=== PATIENT | female | born 1980 | race Caucasian/White ===

== ENCOUNTER 2019-03-24 06:10 | Emergency (ER) | payer BC, OTHER ==
[2019-03-24] MEDS ORDERED: ASPIRIN 81 MG TABLET, CHEWABLE PO ONE (07:27)
[2019-03-24 08:03] LABS: ABSOLUTE BASOPHILS # (AUTO) 0.1 10^3/uL (0.0-0.2); ABSOLUTE EOSINOPHILS # (AUTO) 0.2 10^3/uL (0.0-0.6); ABSOLUTE LYMPHOCYTES (AUTO) 1.7 10^3/uL (0.5-4.7); ABSOLUTE MONOCYTES (AUTO) 0.4 10^3/uL (0.1-1.4); ABSOLUTE NEUT (AUTO) 4.9 10^3/uL (1.7-8.2); BASOPHILS % (AUTO) 0.9 % (0-2); EOSINOPHILS % (AUTO) 2.2 % (0-6); HEMATOCRIT 41.9 % (36.0-47.0); HEMOGLOBIN 14.5 g/dL (12.0-15.5); LYMPHOCYTES % (AUTO) 23.3 % (13-45); MEAN CORPUSCULAR HEMOGLOBIN 31.6 pg (27.0-33.4); MEAN CORPUSCULAR HGB CONC 34.5 g/dL (32.0-36.0); MEAN CORPUSCULAR VOLUME 92 fl (80-97); MONOCYTES % (AUTO) 5.7 % (3-13); PLATELET COUNT 239 10^3/uL (150-450); RED BLOOD COUNT 4.58 10^6/uL (3.72-5.28); RED CELL DISTRIBUTION WIDTH 13.4 % (11.5-14.0); SEGMENTED NEUTROPHILS % (AUTO) 67.9 % (42-78); TOTAL CELLS COUNTED % (AUTO) 100 %; WHITE BLOOD COUNT 7.2 10^3/uL (4.0-10.5)
[2019-03-24 08:15] LABS: ALANINE AMINOTRANSFERASE 22 U/L (9-52); ALBUMIN 4.1 g/dL (3.5-5.0); ALKALINE PHOSPHATASE 89 U/L (38-126); ANION GAP 11 (5-19); ASPARTATE AMINO TRANSFERASE 19 U/L (14-36); BILIRUBIN,DIRECT 0.2 mg/dL (0.0-0.4); BILIRUBIN,TOTAL 0.4 mg/dL (0.2-1.3); BLOOD UREA NITROGEN 10 mg/dL (7-20); CALCIUM 9.6 mg/dL (8.4-10.2); CARBON DIOXIDE 24 mmol/L (22-30); CHLORIDE 108 mmol/L (98-107); CREATINE KINASE 89 U/L (30-135); GLUCOSE 99 mg/dL (75-110); POTASSIUM 4.3 mmol/L (3.6-5.0); SODIUM 142.8 mmol/L (137-145); TOTAL PROTEIN 7.3 g/dL (6.3-8.2)
--- NOTE | 2019-03-24 08:21 | RADIOLOGY REPORT (SQ) ---
EXAM DESCRIPTION: CHEST SINGLE VIEW COMPLETED DATE/TIME: 03/24/2019 8:10 am REASON FOR STUDY: bed 19 cp COMPARISON: None. EXAM PARAMETERS: NUMBER OF VIEWS: One view. TECHNIQUE: Single frontal radiographic view of the chest acquired. RADIATION DOSE: NA LIMITATIONS: None. FINDINGS: LUNGS AND PLEURA: No opacities, masses or pneumothorax. No pleural effusion. MEDIASTINUM AND HILAR STRUCTURES: No masses. Contour normal. HEART AND VASCULAR STRUCTURES: Heart normal in size. Normal vasculature. BONES: No acute findings. HARDWARE: None in the chest. OTHER: No other significant finding. IMPRESSION: NO ACUTE RADIOGRAPHIC FINDING IN THE CHEST. TECHNICAL DOCUMENTATION: JOB ID: [id number] [employer]- All Rights Reserved Reading location - IP/workstation name: [email or web address]
[2019-03-24 08:26] LABS: CREATINE KINASE MB 0.35 ng/mL (<4.55); TROPONIN I < 0.012 ng/mL
--- NOTE | 2019-03-24 08:44 | ER Document Report ---
ED Cardiac - General Chief Complaint: Chest Pain Stated Complaint: CHEST PAIN Time Seen by Provider: 03/24/19 08:04 Primary Care Provider: TYREE LOPEZ MD [ACTIVE STAFF] - Follow up as needed EDWARD KEMP MD [Primary Care Provider] - Follow up as needed Notes: 38-year-old female with history of anxiety presents to the emergency department for chief complaint of chest pain that started at 5 AM this morning. She says the pain is stabbing and constant. She said it is worse when she takes deep breaths. She said it has been going off and on for months. It is in her left chest and radiates around her to her axilla. She has mild nausea. She denies cold sweats, dyspnea, diaphoresis. She is not a smoker. She had a full cardiac work-up in 2017 in [place] that was negative. Of note, she did have a panic attack 2 days ago and her father had several heart attacks, first 1 at age 38.. She denies any fevers or chills, vomiting or diarrhea, abdominal pain, urinary symptoms. No other complaints. TRAVEL OUTSIDE OF THE [place] IN LAST 30 DAYS: No - Related Data Allergies/Adverse Reactions: No Known Allergies Allergy (Unverified 03/24/19 06:14) Past Medical History - Social History Smoking Status: Never Smoker Family History: None Patient has suicidal ideation: No Patient has homicidal ideation: No Renal/ Medical History: Denies: Hx Peritoneal Dialysis Past Surgical History: Reports: Hx Cholecystectomy Review of Systems - Review of Systems Constitutional: See HPI EENT: No symptoms reported Cardiovascular: See HPI Respiratory: See HPI Gastrointestinal: See HPI Genitourinary: See HPI Female Genitourinary: No symptoms reported Musculoskeletal: See HPI Skin: No symptoms reported Hematologic/Lymphatic: No symptoms reported Neurological/Psychological: No symptoms reported Physical Exam - Vital signs Vitals: Temp Pulse Resp BP Pulse Ox 97.8 F 71 16 105/68 97 03/24/19 06:54 03/24/19 06:54 03/24/19 06:54 03/24/19 06:54 03/24/19 06:54 - Notes Notes: PHYSICAL EXAMINATION: Reviewed vital signs and charting by RN GENERAL: Alert, interacts well. No acute distress. HEAD: Normocephalic, atraumatic. EYES: Pupils equal and round. Extraocular movements intact. ENT: Oral mucosa moist, tongue midline. NECK: Full range of motion. Supple. Trachea midline. LUNGS: Clear to auscultation bilaterally, no wheezes, rales, or rhonchi. No respiratory distress. HEART: Regular rate and rhythm. No murmur ABDOMEN: soft, non-tender. Non-distended. Bowel sounds present. no McBurney's point tenderness, no Godfrey sign. EXTREMITIES: Moves all 4 extremities spontaneously. No edema, No cyanosis. Normal distal neurovascular exam BACK: L CVAT NEUROLOGIC: Oriented and appropriate. Normal speech. PSYCH: Normal affect, normal mood. SKIN: Warm, dry, normal turgor. No rashes or lesions noted. Course - Re-evaluation Re-evalutation: 03/24/19 09:40 Patient in mild distress. Her pain is reproducible with deep inspiration. Does have significant family history. Heart score 1 for risk risk factors. PERC negative. Chest x-ray did not show any widened mediastinum. EKG showed normal sinus rhythm. Initial troponin negative. 03/24/19 12:38 Patient second troponin negative. Because the pain is reproducible and I have low suspicion for a cardiac etiology at this time due to patient's heart score and overall clinical picture I do not believe this is due to cardiac etiology like ACS, aortic dissection, aortic aneurysm, PE, or any other emergent conditions. Patient is stable for discharge with close follow-up for cardiac stress testing as an outpatient. Vital signs are normal. 03/24/19 12:39 03/24/19 12:39 - Vital Signs Vital signs: Temp Pulse Resp BP Pulse Ox 97.8 F 89 21 H 116/81 95 03/24/19 06:54 03/24/19 07:33 03/24/19 11:01 03/24/19 11:01 03/24/19 11:01 - Laboratory Result Diagrams: 03/24/19 07:42 03/24/19 07:42 Laboratory results interpreted by me: 03/24/19 07:42 Chloride 108 H Discharge - Discharge Clinical Impression: Chest pain Qualifiers: Chest pain type: unspecified Qualified Code(s): R07.9 - Chest pain, unspecified Condition: Good Disposition: HOME, SELF-CARE Additional Instructions: You were seen today for chest pain. The exact cause of your pain is unclear. However, based on your cardiac enzyme testing, chest x-ray, and EKG it does not appear that it is from an immediately life-threatening cause at this time. Although your testing here is normal is critical that you follow-up with your primary care physician for continued evaluation of this chest pain and possible stress testing. I recommended you see your physician within the next 24-48 hour s to be evaluated for consideration of a stress test. I have given you referral information for associate merchandise planner, Dr. Lopez. Please return to emergency department immediately if you have worsening of your chest pain, shortness of breath, vomiting, become unable to exert yourself due to pain or difficulty breathing, you pass out, or have any pain that radiates into your arms, jaw, or back. Please also return if you have any additional symptoms that are concerning to you. Referrals: EDWARD KEMP MD [Primary Care Provider] - Follow up as needed TYREE LOPEZ MD [ACTIVE STAFF] - Follow up as needed
[2019-03-24] MEDS ORDERED: FENTANYL CITRATE INJ/PF 100 MCG/2 ML AMPUL IV ONE ×3 (10:00→12:44)
[2019-03-24] MEDS ORDERED: ONDANSETRON HCL INJ/PF 4 MG/2 ML SDV IV ONE (11:57)
[2019-03-24] MEDS ORDERED: ONDANSETRON ODT 4 MG TAB (6 TAB/ER DISP) PO PRN (11:57)
[2019-03-24] MEDS ORDERED: HYDROCODONE/ACETAMINOPHEN 5-325 MG (6 TAB/ER DISP) PO PRN (11:58)
[2019-03-24 12:43] VITALS: BP 116/77
--- NOTE | 2019-03-24 22:53 | EKG REPORT ---
SEVERITY:- NORMAL ECG - SINUS RHYTHM : Confirmed by: Giuseppe Tripathi 24-Mar-2019 22:51:58
== END 2019-03-24 12:56 | disposition home or self-care (01) ==
LOC: ER 06:10
DX: R07.9 Chest pain, unspecified (principal); F41.9 Anxiety disorder, unspecified
CPT/HCPCS: 93005; 96376; 99284; 96374; 96375; 36415; 82553; 82550; 85025; 80053; 84484; 71045; 93010; J3010; J2405

== ENCOUNTER 2020-04-05 12:13 | Emergency (ER) | payer OTHER ==
--- NOTE | 2020-04-05 12:50 | ER Document Report ---
ED Medical Screen (RME) - General Chief Complaint: Chest Pain Stated Complaint: CHEST PAIN Time Seen by Provider: 04/05/20 12:49 Primary Care Provider: EDWARD KEMP MD [Primary Care Provider] - Follow up as needed Mode of Arrival: Ambulatory Information source: Patient Notes: 39-year-old female patient presents the emergency department chief complaint of chest pain. Patient reports pain started yesterday to the left side of her chest near the mid axillary line. She states she does have a history of costochondritis. She states the pain has been intermittent but severe. She states the pain feels like a sharp stabbing pain and she is having a hard time catching her breath. She reports that she has a strong family cardiac history. Lung sounds clear and equal bilaterally. Heart sounds S1-S2 present, normal rate, normal rhythm. I have greeted and performed a rapid initial assessment of this patient. A comprehensive ED assessment and evaluation of the patient, analysis of test results and completion of the medical decision making process will be conducted by additional ED providers. I have specifically instructed the patient or family members with the patient to immediately return to any nursing staff should anything change in the patient's condition or with their chief complaint. TRAVEL OUTSIDE OF THE [place] IN LAST 30 DAYS: No - Related Data Allergies/Adverse Reactions: No Known Allergies Allergy (Verified 04/05/20 12:47) Past Medical History - Social History Chew tobacco use (# tins/day): No Frequency of alcohol use: Occasional Drug Abuse: None Renal/ Medical History: Denies: Hx Peritoneal Dialysis Past Surgical History: Reports: Hx Cholecystectomy Physical Exam - Vital signs Vitals: Temp Pulse Resp BP Pulse Ox 97.8 F 100 16 125/82 98 04/05/20 12:27 04/05/20 12:27 04/05/20 12:27 04/05/20 12:27 04/05/20 12:27 Course - Vital Signs Vital signs: Temp Pulse Resp BP Pulse Ox 97.8 F 100 16 125/82 98 04/05/20 12:45 04/05/20 12:27 04/05/20 12:27 04/05/20 12:27 04/05/20 12:27 Doctor's Discharge - Discharge Referrals: EDWARD KEMP MD [Primary Care Provider] - Follow up as needed
[2020-04-05 13:10] LABS: ABSOLUTE BASOPHILS # (AUTO) 0.1 10^3/uL (0.0-0.2); ABSOLUTE EOSINOPHILS # (AUTO) 0.2 10^3/uL (0.0-0.6); ABSOLUTE LYMPHOCYTES (AUTO) 1.7 10^3/uL (0.5-4.7); ABSOLUTE MONOCYTES (AUTO) 0.4 10^3/uL (0.1-1.4); BASOPHILS % (AUTO) 0.7 % (0-2); EOSINOPHILS % (AUTO) 2.1 % (0-6); HEMATOCRIT 41.3 % (36.0-47.0); HEMOGLOBIN 14.4 g/dL (12.0-15.5); LYMPHOCYTES % (AUTO) 20.4 % (13-45); MEAN CORPUSCULAR HEMOGLOBIN 31.1 pg (27.0-33.4); MEAN CORPUSCULAR HGB CONC 34.8 g/dL (32.0-36.0); MEAN CORPUSCULAR VOLUME 89 fl (80-97); MONOCYTES % (AUTO) 5.3 % (3-13); PLATELET COUNT 236 10^3/uL (150-450); RED BLOOD COUNT 4.62 10^6/uL (3.72-5.28); RED CELL DISTRIBUTION WIDTH 13.7 % (11.5-14.0); SEGMENTED NEUTROPHILS % (AUTO) 71.5 % (42-78); TOTAL CELLS COUNTED % (AUTO) 100 %; WHITE BLOOD COUNT 8.4 10^3/uL (4.0-10.5)
--- NOTE | 2020-04-05 13:25 | ER Document Report ---
ED General - General Chief Complaint: Chest Pain Stated Complaint: CHEST PAIN Time Seen by Provider: 04/05/20 12:49 Primary Care Provider: EDWARD KEMP MD [NO LOCAL MD] - Follow up as needed Mode of Arrival: Ambulatory TRAVEL OUTSIDE OF THE [place] IN LAST 30 DAYS: No - HPI Notes: Chief complaint: Chest pain HPI: 39-year-old female presenting for evaluation of intermittent sharp discomfort left anterolateral chest below axilla present now for 2 days. She denies trauma or unaccustomed activity. She is felt mildly dyspneic. She denies cough or hemoptysis. No fever or chills. No personal history of thromboembolic disease but her father was treated for PE in the past. Pain is mildly pleuritic. Also aggravated by movement of the left upper extremity or lying on left side. No skin rashes. Patient is recently been started on progesterone for management of postmenopausal symptoms. No recent lower extremity edema or pain. No recent surgery. No recent prolonged travel or immobilization. Patient had similar discomfort in 2017 and underwent evaluation for coronary ischemia and PE in [facility] and was told that her work-up was negative at that time and that her pain was likely of musculoskeletal origin. Her evaluation included a normal treadmill test. Patient had another episode of similar discomfort which was evaluated here approximately 1 year ago. She was told at that time that she had probable costochondritis. Patient is not diabetic. She has no history of hypertension or hyperlipidemia. Family history is positive for CAD. HEART Score: HISTORY 0 ECG 0 AGE 0 RISK FACTORS 1 TROPONIN 0 TOTAL: 1 If HEART score is = or <3 AND both tronponin measurments are normal, the 30 day risk of a major adverse cardiac event (all-cause mortality, myocardia infarction or need for coronary revscularization) is < 1% (Sensitivity 100%, NPV 100%). - Related Data Allergies/Adverse Reactions: No Known Allergies Allergy (Verified 04/05/20 12:47) Past Medical History - General Information source: Patient, [facility] Records - Social History Smoking Status: Never Smoker Chew tobacco use (# tins/day): No Frequency of alcohol use: Occasional Drug Abuse: None Family History: None Patient has homicidal ideation: No - Past Medical History Cardiac Medical History: Reports: None Pulmonary Medical History: Reports: None Neurological Medical History: Reports: None Endocrine Medical History: Reports: None Renal/ Medical History: Denies: Hx Peritoneal Dialysis Malignancy Medical History: Reports: None GI Medical History: Reports: None Psychiatric Medical History: Reports: Hx Anxiety, Hx Depression Past Surgical History: Reports: Hx Cholecystectomy Review of Systems - Review of Systems Notes: Constitutional: Negative for fever. HENT: Negative for sore throat. Eyes: Negative for visual changes. Cardiovascular: As per HPI Respiratory: As per HPI Gastrointestinal: Negative for abdominal pain, vomiting or diarrhea. Genitourinary: Negative for dysuria. Musculoskeletal: Negative for back pain. Skin: Negative for rash. Neurological: Negative for headaches, weakness or numbness. 10 point ROS negative except as marked above and in HPI. Physical Exam - Vital signs Vitals: Temp Pulse Resp BP Pulse Ox 97.8 F 100 16 125/82 98 04/05/20 12:27 04/05/20 12:27 04/05/20 12:27 04/05/20 12:27 04/05/20 12:27 - Notes Notes: GENERAL: Well-developed well-nourished appearing in no acute distress. SKIN: Good turgor no rashes. HEAD: Normocephalic atraumatic. EYES: PERRLA. EOMI. Conjunctivae and sclerae clear. EARS: CANALS AND TMS CLEAR. NOSE: CLEAR. MOUTH: Moist mucosa. Good dentition. No stridor or edema. No drooling. NECK: Supple. No masses or thyromegaly. No adenopathy. Carotids 2+ without bruits. No JVD. BACK: Symmetrical without tenderness. CHEST: Patient is taking shallow respirations and possible splinting some of the left side. Respirations unlabored. Breath sounds clear and symmetrical. HEART: Tenderness over left anterolateral rib cage which EXACTLY reproduces her pain. Regular rhythm. No murmur gallop or rub. ABDOMEN: Soft nontender without masses, organomegaly or rebound. Bowel sounds normally active. No bruits. GENITALIA: Deferred. EXTREMITIES: No edema. No calf tenderness. Cap refill less than 1.5 seconds. Dorsalis pedis and posterior tibial pulses 3+ and symmetrical. NEUROLOGICAL: GCS 15. Alert and oriented x3. Normal gait. Fluent speech. Cranial nerves II through XII intact. Sensorimotor and cerebellar normal. Normal tone. PSYCHIATRIC: Anxious affect. Course - Re-evaluation Re-evalutation: 04/05/20 15:11 This lady has reproducible pain on palpation over her chest wall. She has been worked up in the past with negative cardiac evaluation. She has minimal risk factors. She did raise some concern for pulmonary embolus so I got a CTA of the chest and this was negative for PE. Her troponin is normal here. Her EKG showed no acute changes. I think she is stable for outpatient management. I also note she has a fairly significant thoracolumbar scoliosis which may predispose her to muscular spasm. I will send her out with NSAID and muscle relaxer and have her follow-up with PMD this week. - Vital Signs Vital signs: Temp Pulse Resp BP Pulse Ox 97.8 F 100 16 113/82 98 04/05/20 12:45 04/05/20 12:27 04/05/20 15:00 04/05/20 15:00 04/05/20 15:00 - Laboratory Result Diagrams: 04/05/20 12:55 04/05/20 12:55 - EKG Interpretation by Me Additional EKG results interpreted by me: 04/05/20 13:38 Twelve-lead EKG from 1222 hrs. reviewed contemporaneously by me showing normal sinus rhythm with a rate of 88 normal intervals and axis of +30 degrees. Nonspecific anterolateral T wave flattening. Discharge - Discharge Clinical Impression: Chest wall pain, Thoracogenic scoliosis, thoracolumbar region Condition: Stable Disposition: HOME, SELF-CARE Instructions: Chest Wall Pain ([facility]) Additional Instructions: See your primary care doctor this week for further evaluation. Take prescribed medications. Return here as needed for new or worsening symptoms: Pain that is worsening or unimproved Uncontrolled vomiting High fever or shaking chills Overall worsening Prescriptions: Cyclobenzaprine HCl [Flexeril 10 mg Tablet] 10 mg PO QHS PRN 15 Days #15 tablet PRN Reason: Indomethacin 25 mg PO TID 10 Days #30 capsule Referrals: EDWARD KEMP MD [NO LOCAL MD] - Follow up as needed
[2020-04-05 13:26] LABS: ALBUMIN 3.9 g/dL (3.5-5.0); ALKALINE PHOSPHATASE 102 U/L (38-126); ANION GAP 6 (5-19); ASPARTATE AMINO TRANSFERASE 25 U/L (14-36); BILIRUBIN,TOTAL 0.5 mg/dL (0.2-1.3); BLOOD UREA NITROGEN 11 mg/dL (7-20); CALCIUM 9.3 mg/dL (8.4-10.2); CARBON DIOXIDE 26 mmol/L (22-30); CHLORIDE 107 mmol/L (98-107); GLUCOSE 106 mg/dL (75-110); POTASSIUM 4.1 mmol/L (3.6-5.0); TOTAL PROTEIN 7.1 g/dL (6.3-8.2)
--- NOTE | 2020-04-05 13:31 | RADIOLOGY REPORT (SQ) ---
EXAM DESCRIPTION: CHEST SINGLE VIEW IMAGES COMPLETED DATE/TIME: 04/05/2020 12:07 pm REASON FOR STUDY: chest pain COMPARISON: 04/08/2019 EXAM PARAMETERS: NUMBER OF VIEWS: One view. TECHNIQUE: Single frontal radiographic view of the chest acquired. RADIATION DOSE: NA LIMITATIONS: None. FINDINGS: LUNGS AND PLEURA: No opacities, masses or pneumothorax. No pleural effusion. MEDIASTINUM AND HILAR STRUCTURES: No masses. Contour normal. HEART AND VASCULAR STRUCTURES: Heart normal in size. Normal vasculature. BONES: Mild apex right scoliotic curvature of the thoracic spine, stable. HARDWARE: None in the chest. OTHER: No other significant finding. IMPRESSION: NO ACUTE RADIOGRAPHIC FINDING IN THE CHEST. TECHNICAL DOCUMENTATION: JOB ID: [id number] 2010 [employer]- All Rights Reserved Reading location - IP/workstation name: [email or web address]
[2020-04-05] MEDS ORDERED: KETOROLAC TROMETHAMINE INJ/PF 30 MG/1 ML SDV IV ONE (13:45)
--- NOTE | 2020-04-05 14:36 | RADIOLOGY REPORT (SQ) ---
EXAM DESCRIPTION: CTA CHEST IMAGES COMPLETED DATE/TIME: 04/05/2020 1:05 pm REASON FOR STUDY: Pleuritic chest pain, dyspnea COMPARISON: None. TECHNIQUE: CT scan of the chest performed using helical scanning technique with dynamic intravenous contrast injection. Images reviewed with lung, soft tissue and bone windows. Reconstructed coronal and sagittal MPR images reviewed. Additional 3 dimensional post-processing performed to develop Maximal Intensity Projection images (FL P). All images stored on PACS. All CT scanners at this facility use dose modulation, iterative reconstruction, and/or weight based d osing when appropriate to reduce radiation dose to as low as reasonably achievable (ALARA). [facility]: Dose Right [facility]: CareDose [facility]: Dose Right [facility]: Teradose 4D [facility]: [employer] CONTRAST TYPE AND DOSE: 100 mL Omnipaque 350- low osmolar. Contrast bolus optimized for the pulmonary arteries. Not diagnostic for the aorta. RENAL FUNCTION: GFR > 60. RADIATION DOSE: CT Rad equipment meets quality standard of care and radiation dose reduction techniq ues were employed. CTDIvol: 13.2 - 17.8 mGy. DLP: 750 mGy-cm. . LIMITATIONS: None. FINDINGS: LUNGS AND PLEURA: No masses, infiltrates, or pneumothorax. No pleural effusions or pleura l calcifications. AORTA AND GREAT VESSELS: No aneurysm. Contrast bolus not optimized for the aorta. HEART: No pericardial effusion. No significant coronary artery calcifications. PULMONARY ARTERIES: No emboli visualized in the main pulmonary arteries or the segmental branches. HILAR AND MEDIASTINAL STRUCTURES: No identified masses or abnormal nodes. HARDWARE: None in the chest. UPPER ABDOMEN: No significant findings. Limited exam. THYROID AND OTHER SOFT TISSUES: No masses. No adenopathy. BONES: No acute or significant finding. 3D MIPS: Confirm above findings. OTHER: No other significant finding. IMPRESSION: NORMAL CTA OF THE CHEST. NO PULMONARY EMBOLI. COMMENT: Quality ID # [id number]: Final reports with documentation of one or more dose reduction techniques (e.g., Automated exposure control, adjustment of the mA and/or kV according to patient size, use of iterative reconstruction technique) TECHNICAL DOCUMENTATION: JOB ID: [id number] 2010 [employer]- All Rights Reserved Reading location - IP/workstation name: [email or web address]
[2020-04-05 16:01] VITALS: BP 113/80
--- NOTE | 2020-04-05 22:17 | EKG REPORT ---
SEVERITY:- BORDERLINE ECG - SINUS RHYTHM BORDERLINE T ABNORMALITIES, ANTERIOR LEADS : Confirmed by: Giuseppe Tripathi 05-Apr-2020 22:17:03
== END 2020-04-05 15:51 | disposition home or self-care (01) ==
LOC: ER 12:13
DX: M41.35 Thoracogenic scoliosis, thoracolumbar region (principal); R07.89 Other chest pain; R06.00 Dyspnea, unspecified; R07.81 Pleurodynia
CPT/HCPCS: 93005; 99284; 96374; 36415; 85025; 80053; 84484; 71045; 71275; 93010; J1885

== ENCOUNTER 2020-10-26 21:18 | Emergency (ER) | payer OTHER ==
[2020-10-26] MEDS ORDERED: KETOROLAC TROMETHAMINE INJ/PF 30 MG/1 ML SDV IV ONE (21:33)
[2020-10-26] MEDS ORDERED: NORMAL SALINE 1000 ML 1,000 ML IV ONE (21:33)
[2020-10-26] MEDS ORDERED: ONDANSETRON HCL INJ/PF 4 MG/2 ML SDV IV ONE ×2 (21:34→23:54)
--- NOTE | 2020-10-26 21:35 | ER Document Report ---
ED Medical Screen (RME) - General Chief Complaint: Flank Pain Stated Complaint: SEVERE FLANK PAIN, BLOOD IN URINE,NAUSEA Time Seen by Provider: 10/26/20 21:30 Notes: HPI: 40-year-old female with sudden onset of left flank pain that began approx imately an hour ago with 2 episodes of nausea vomiting. Pain started in the back is now radiated around to the front. Has had some frequency of urination tonight with this. No fever prior. No kidney stone history. Position and movement and walking do not change the character of the discomfort PHYSICAL EXAMINATION: Appears moderately uncomfortable. Minimal tenderness of the left flank on palpation no CVA tenderness on the left I have greeted and performed a rapid initial assessment of this patient. A comprehensive ED assessment and evaluation of the patient, analysis of test results and completion of medical decision making process will be conducted by an additional ED providers. TRAVEL OUTSIDE OF THE [place] IN LAST 30 DAYS: No - Related Data Allergies/Adverse Reactions: No Known Allergies Allergy (Verified 04/05/20 12:47) Past Medical History Renal/ Medical History: Denies: Hx Peritoneal Dialysis Psychiatric Medical History: Reports: Hx Anxiety, Hx Depression Past Surgical History: Reports: Hx Cholecystectomy
[2020-10-26] MEDS ORDERED: ONDANSETRON 4 MG TAB.RAPDIS PO ONE (21:40)
[2020-10-26] MEDS ORDERED: KETOROLAC TROMETHAMINE 60 MG/2 ML SDV IM ONE (21:40)
[2020-10-26 22:22] LABS: ABSOLUTE BASOPHILS # (AUTO) 0.1 10^3/uL (0.0-0.2); ABSOLUTE EOSINOPHILS # (AUTO) 0.2 10^3/uL (0.0-0.6); ABSOLUTE LYMPHOCYTES (AUTO) 2.3 10^3/uL (0.5-4.7); ABSOLUTE MONOCYTES (AUTO) 0.6 10^3/uL (0.1-1.4); BASOPHILS % (AUTO) 0.7 % (0-2); EOSINOPHILS % (AUTO) 1.7 % (0-6); HEMOGLOBIN 14.7 g/dL (12.0-15.5); LYMPHOCYTES % (AUTO) 22.7 % (13-45); MEAN CORPUSCULAR HEMOGLOBIN 31.3 pg (27.0-33.4); MEAN CORPUSCULAR HGB CONC 34.9 g/dL (32.0-36.0); MEAN CORPUSCULAR VOLUME 90 fl (80-97); MONOCYTES % (AUTO) 6.4 % (3-13); PLATELET COUNT 286 10^3/uL (150-450); RED BLOOD COUNT 4.69 10^6/uL (3.72-5.28); RED CELL DISTRIBUTION WIDTH 13.7 % (11.5-14.0); SEGMENTED NEUTROPHILS % (AUTO) 68.5 % (42-78); TOTAL CELLS COUNTED % (AUTO) 100 %; WHITE BLOOD COUNT 10.2 10^3/uL (4.0-10.5)
[2020-10-26 22:37] LABS: APPEARANCE,URINE TURBID; BILIRUBIN,URINE NEGATIVE (NEGATIVE); COLOR,URINE YELLOW; GLUCOSE, URINE NEGATIVE (NEGATIVE); KETONES,URINE NEGATIVE (NEGATIVE); LEUKOCYTE ESTERASE,URINE MODERATE (NEGATIVE); NITRITE,URINE NEGATIVE (NEGATIVE); PROTEIN,URINE 100 mg/dL (NEGATIVE); URINE SPECIFIC GRAVITY 1.027; UROBILINOGEN,URINE NEGATIVE mg/dL (<2.0)
[2020-10-26 22:41] LABS: ALBUMIN 4.5 g/dL (3.5-5.0); ALKALINE PHOSPHATASE 105 U/L (38-126); ANION GAP 10 (5-19); ASPARTATE AMINO TRANSFERASE 25 U/L (14-36); BILIRUBIN,DIRECT 0.1 mg/dL (0.0-0.4); BILIRUBIN,TOTAL 0.4 mg/dL (0.2-1.3); BLOOD UREA NITROGEN 9 mg/dL (7-20); CALCIUM 10.2 mg/dL (8.4-10.2); CARBON DIOXIDE 21 mmol/L (22-30); CHLORIDE 106 mmol/L (98-107); GLUCOSE 121 mg/dL (75-110); POTASSIUM 3.9 mmol/L (3.6-5.0); TOTAL PROTEIN 7.8 g/dL (6.3-8.2)
--- NOTE | 2020-10-26 23:42 | RADIOLOGY REPORT (SQ) ---
CLINICAL HISTORY: left flank pain COMPARISON: None. TECHNIQUE: CT ABDOMEN PELVIS WITHOUT IV CONTRAST on 10/26/2020 9:34 PM VISUAL C DEVELOPER This exam was performed according to our departmental dose-optimization program, which includes automated exposure control, adjustment of the mA and/or kV according to patient size and/or use of iterative reconstruction technique. FINDINGS: Lower lungs are clear. Abdomen: There are several small cysts in the liver. There is no biliary dilatation. Cholecystectomy was performed. The pancreas and spleen are normal in appearance. Adrenal glands and right kidney are unremarkable. There is mild left hydronephrosis secondary to a punctate left UVJ calculus. Abdominal aorta is normal in course and caliber without aneurysm. There is no free air. There is no retroperitoneal adenopathy. Pelvis: There is no bowel obstruction. Urinary bladder is unremarkable. There is no free fluid. Uterus is normal in size. Appendix is normal. IUD is present. Skeleton: There are no acute osseous findings. No suspicious bony lesions. IMPRESSION: Mildly obstructing punctate left UVJ calculus.
[2020-10-26] MEDS ORDERED: HYDROMORPHONE HCL INJ/PF 2 MG/ML AMPULE IV STA (23:52)
[2020-10-26] MEDS ORDERED: NORMAL SALINE 500 ML IV ONE (23:54)
--- NOTE | 2020-10-27 00:02 | ER Document Report ---
ED General - General Chief Complaint: Possible Kidney Stone Stated Complaint: SEVERE FLANK PAIN, BLOOD IN URINE,NAUSEA Time Seen by Provider: 10/26/20 21:30 Primary Care Provider: ANGELICA BARRERA MD [NO LOCAL MD] - Follow up as needed TRAVEL OUTSIDE OF THE [place] IN LAST 30 DAYS: No - HPI Notes: Chief Complaint: Left flank pain Historian: History obtained from patient HPI: This is a 40-year-old female presents to the ER with acute onset of left flank pain about 1 hour prior to arrival. Patient has associated nausea vomiting and gross hematuria. Left flank pain is severe and throbbing and radiates to the left lower abdomen. She denies history of kidney stones. Denies fever, chills, chest pain, shortness of breath, bowel changes, vaginal discharge. No treatments tried prior to arrival. ROS: Constitutional: no fevers. HEENT: no [place], sore throat, or vision changes. CV: no chest pain or palpitations. Resp: no cough or SOB. GI: Left flank pain, left lower abdominal pain. : Hematuria. MSK: no back pain, no joint swelling/redness. Skin: no rashes or itching. Neuro: no seizures, weakness, numbness, or confusion. Hematological: no ecchymosis or easy bleeding. Endocrine: no polyuria/polydipsia, no heat/cold intolerance. Psych: no SI/HI, AH/VH or memory loss. PMHx: Reviewed and agree as charted by RN. PSHx: Reviewed and agree as charted by RN. SOCHx: Reviewed and agree as charted by RN. FHX: No significant familial comorbid conditions directly related to patient complaint Current Medications: Reviewed and agree with the patient medications as charted by the RN. Allergies: Reviewed and agree with the listed allergies as charted by the RN Physical Exam: Vitals: Reviewed in chart as documented by RN. General: Alert and mild distress due to pain. Head: Normocephalic; atraumatic Eyes: PERRLA, Conjunctivae clear sclerae non-icteric bilat ENT: no soft palate swelling or uvular deviation Neck: trachea midline, no unilateral swelling/tenderness/lymphadenopathy CV: RRR, no M/R/G; symmetric distal pulses Resp: respirations even and unlabored, CTA bilat. GI: Mild left CVA tenderness. Mild left lower abdominal tenderness. Abdomen is soft, nondistended. No rebound or peritoneal signs. No guarding. Bowel sounds normal. No pulsatile mass. MSK: FROM of all extremities. No midline CTL spine tenderness/deformity Skin: warm, moist, good turgor. no rash/lesions Neuro: Alert and oriented X 4. following CN 2-12 intact. no unilateral weakness/numbness Psych: No SI/HI or AH/VH. ED Results: Medical Decision-Making: Medical Decision-Making: Differential includes pyelonephritis, UTI, cystitis, STD, PID, BV, nephrolithiasis, ureterolithiasis, ectopic , IUP, ovarian torsion, ovarian cyst, back strain, diverticulitis, colitis etc. Planbasic labs, UA, IV fluids, pain control and antiemetics as needed. CT abdomen pelvis stone protocol. - Related Data Allergies/Adverse Reactions: No Known Allergies Allergy (Verified 04/05/20 12:47) Home Medications: progesterone, heartburn med Past Medical History - Social History Smoking Status: Never Smoker Family History: None Renal/ Medical History: Denies: Hx Peritoneal Dialysis Psychiatric Medical History: Reports: Hx Anxiety, Hx Depression Past Surgical History: Reports: Hx Cholecystectomy Physical Exam - Vital signs Vitals: Temp Pulse Resp BP Pulse Ox 97.9 F 88 20 131/92 H 97 10/26/20 21:34 10/26/20 21:34 10/26/20 21:34 10/26/20 21:34 10/26/20 21:34 Course - Re-evaluation Re-evalutation: 10/27/20 00:02 I reviewed imaging and it appears the patient has a small ureterolithiasis at the left UVJ with very mild hydroureter., Pending official radiology read. Blood tests are reassuring. UA with large amount of red blood cells, leuk esterase and 3+ bacteria noted but patient also has a large amount of squamous cells consistent with contamination. I reevaluated the patient and updated them regarding results. Patient says her pain is now recurring. We will give her Dilaudid 1 mg and another 500 mL of IV normal saline as well as IV Zofran. Plan to discharge home with urine filter, pain control, antiemetics, urology referral. Patient is afebrile and denies prior signs of UTI. I do not feel antibiotics are indicated with a contaminated urine specimen. Reflex culture was sent. Return factors were discussed with the patient as well as home care. They will call urology for follow-up. - Vital Signs Vital signs: Temp Pulse Resp BP Pulse Ox 97.9 F 88 20 131/92 H 97 10/26/20 21:34 10/26/20 21:34 10/26/20 21:34 10/26/20 21:34 10/26/20 21:34 - Laboratory Result Diagrams: 10/26/20 22:05 10/26/20 22:05 Laboratory results interpreted by me: 10/26/20 10/26/20 22:05 22:05 Sodium 136.6 L Carbon Dioxide 21 L Glucose 121 H Urine Protein 100 H Urine Blood LARGE H Ur Leukocyte Esterase MODERATE H Discharge - Discharge Clinical Impression: Kidney stone on left side Condition: Stable Disposition: HOME, SELF-CARE Instructions: Kidney Stone ([facility]) Additional Instructions: No driving on pain medicine. Drink plenty of fluids. Follow printed instructions. Call [facility] -Dr. Barrera-to schedule an appointment for soon as possible. Strain your urine and bring any passed stones to your urology appointment. Return to the ER if your condition worsens, especially if you have fevers, chills continuous vomiting or any other concerning signs or symptoms.. Prescriptions: Hydrocodone/Acetaminophen [[place] 7.5-325 mg Tablet] 1 tab PO Q6HP PRN #12 tablet PRN Reason: Ketorolac Tromethamine [Toradol 10 mg Tablet] 10 mg PO Q6HP PRN #15 tablet PRN Reason: Ondansetron [Zofran Odt 4 mg Tablet] 1 - 2 tab PO Q4H PRN #15 tab.rapdis PRN Reason: For Nausea/Vomiting Forms: Return to Work Referrals: ANGELICA BARRERA MD [NO LOCAL MD] - Follow up as needed
[2020-10-27] MEDS ORDERED: HYDROCODONE/ACETAMINOPHEN 5-325 MG (6 TAB/ER DISP) PO PRN (01:27)
[2020-10-27 02:16] VITALS: BP 104/76
== END 2020-10-27 02:34 | disposition home or self-care (01) ==
LOC: ER 21:18
DX: N20.0 Calculus of kidney (principal); R10.9 Unspecified abdominal pain; R11.2 Nausea with vomiting, unspecified; R31.0 Gross hematuria
CPT/HCPCS: 99285; 96372; 96361; 96374; 96375; 36415; 83690; 84703; 85025; 80053; 81001; 74176; J1885; S0119; J1170; J2405; J7030; J7040